=== PATIENT | male | born 1985 | race African-American/Black ===

== ENCOUNTER 2017-04-15 15:08 | Emergency (ER) | payer OTHER, BC ==
[~2017-04-15] VITALS: Ht 175.3 cm; Wt 129.3 kg
[2017-04-15 15:22] VITALS: BP 169/92
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
[2017-04-15] MEDS ORDERED: CYCL10TA2 PO (16:54)
[2017-04-15] MEDS ORDERED: NAPR500T8 PO (16:54)
== END 2017-04-15 16:59 | disposition home or self-care (01) ==
LOC: ER 15:08
DX: S13.4XXA Sprain of ligaments of cervical spine, initial encounter (principal); M54.5 Low back pain; I10 Essential (primary) hypertension; V49.49XA Driver injured in collision with other motor vehicles in traffic accident, initial encounter; Y93.89 Activity, other specified; Y99.8 Other external cause status; Y92.488 Other paved roadways as the place of occurrence of the external cause
CPT/HCPCS: 72100; 72125; 99284-25

== ENCOUNTER 2018-04-22 12:03 | Emergency (ER) | payer BC, OTHER ==
[2018-04-22 12:40] LABS: ADD MAN DIFF? NO
[2018-04-22 12:42] LABS: BASO % 1 % (0-3); EOS # 0.3 x10^3/uL (0.0-0.7); EOS % 5 % (0-3); HEMATOCRIT 42.7 % (39.0-53.0); HEMOGLOBIN 15.2 g/dL (13.0-17.5); LYMPH # 1.3 x10^3/uL (1.0-4.8); LYMPH % 28 % (24-48); MEAN CORPUSCULAR HEMOGLOBIN 32 pg (25-35); MEAN CORPUSCULAR HGB CONC 36 g/dL (31-37); MEAN CORPUSCULAR VOLUME 90 fL (79-100); MONO # 0.4 x10^3/uL (0.0-1.1); MONO % 8 % (0-9); NEUT # 2.8 x10^3uL (1.8-7.7); NEUT % 58 % (31-73); PLATELET COUNT 209 x10^3/uL (140-400); RED BLOOD COUNT 4.73 x10^6/uL (4.30-5.70); RED CELL DISTRIBUTION WIDTH 12.6 % (11.5-14.5); WHITE BLOOD COUNT 4.9 x10^3/uL (4.0-11.0)
[2018-04-22 12:54] LABS: ANION GAP 11 (6-14); BLOOD UREA NITROGEN 11 mg/dL (8-26); BUN/CREATININE RATIO 11 (6-20); CALCIUM 8.2 mg/dL (8.5-10.1); CARBON DIOXIDE 25 mmol/L (21-32); CHLORIDE 105 mmol/L (98-107); GFR 105.5; GLUCOSE 147 mg/dL (70-99); POTASSIUM 3.6 mmol/L (3.5-5.1); SODIUM 141 mmol/L (136-145)
[2018-04-22 12:58] LABS: TROPONINI 0.017 ng/mL (0.000-0.055)
[2018-04-22 13:00] LABS: ALBUMIN 3.5 g/dL (3.4-5.0); ALK PHOS 62 U/L (46-116); ALT (SGPT) 51 U/L (16-63); AST (SGOT) 23 U/L (15-37); TOTAL BILIRUBIN 0.3 mg/dL (0.2-1.0); TOTAL PROTEIN 7.1 g/dL (6.4-8.2)
[2018-04-22 13:04] LABS: BILIRUBIN,URINE NEGATIVE (NEG); CLARITY,URINE CLEAR; COLOR,URINE YELLOW; GLUCOSE,URINE NEGATIVE (NEG); NITRITE,URINE NEGATIVE (NEG); PH,URINE 5.5; PROTEIN,URINE NEGATIVE (NEG-TRACE); UROBILINOGEN,URINE 0.2 mg/dL (0.2 mg/dL)
[2018-04-22 13:12] LABS: BACTERIA,URINE 0 /HPF (0-FEW); RBC,URINE 0 /HPF (0-2); SQUAMOUS EPITHELIAL CELL,UR FEW /LPF
[2018-04-22 14:16] LABS: AMPHETAMINE/METHAMPHETAMINE NEG (NEG); BARBITURATES NEG (NEG); BENZODIAZEPINES NEG (NEG); CANNABINOIDS NEG (NEG); COCAINE NEG (NEG); ETHANOL, URINE NEG (NEG); METHADONE NEG (NEG); OPIATES NEG (NEG); PHENCYCLIDINE NEG (NEG)
[2018-04-22] MEDS: cloNIDine HCL 0.1 MG TABLET PO (14:25)
== END 2018-04-22 14:58 | disposition home or self-care (01) ==
LOC: ER 12:03
DX: I10 Essential (primary) hypertension (principal); F43.8 Other reactions to severe stress; R53.81 Other malaise; F17.200 Nicotine dependence, unspecified, uncomplicated; F10.10 Alcohol abuse, uncomplicated
CPT/HCPCS: 36415; 80053; 80307; 81001; 84484; 85025; 93005; 99285-25

== ENCOUNTER 2019-10-05 18:42 | Emergency (ER) | payer BC ==
[~2019-10-05] VITALS: Ht 172.7 cm; Wt 145.1 kg
[~2019-10-05 18:42] MED LIST: CYCL10TA2 PO; NAPR500T8 PO
[2019-10-05 18:45] VITALS: BP 149/84
[2019-10-05] MEDS ORDERED: DEXAMETHASONE 4 MG TABLET PO STA (19:25)
[2019-10-05] MEDS ORDERED: ONDA4TAB12 PO (19:35)
--- NOTE | 2019-10-05 19:35 | PHYS DOC ---
Past Medical History Past Medical History: Hypertension, Other Additional Past Medical Histor: obesity (TIFFANI LENZ APRN) Past Surgical History: No Surgical History (TIFFANI LENZ APRN) Alcohol Use: Heavy Drug Use: None (TIFFANI LENZ APRN) Attending Signature I have participated in the care of this patient and I have reviewed and agree with all pertinent clinical information above including history, exam, and recommendations. (HUGH IBANEZ MD) Adult General Chief Complaint Chief Complaint: COUGH HPI HPI Patient is a 34 year old male who presents with headache, loss of appetite, nausea, vomiting, sore throat, runny nose, cough that started yesterday. (TIFFANI LENZ APRN) Review of Systems Review of Systems Constitutional: Reports fever or chills and body aches. Eyes: Denies change in visual acuity, redness, or eye pain [] HENT: Reports nasal congestion, sore throat, and runny nose. Respiratory: Reports cough. Denies shortness of breath. Cardiovascular: No additional information not addressed in HPI [] GI: Reports nausea and vomiting. Denies abdominal pain, bloody stools or diarrhea [] : Denies dysuria or hematuria [] Musculoskeletal: Denies back pain or joint pain [] Integument: Denies rash or skin lesions [] Neurologic: Reports headache, denies focal weakness or sensory changes [] Endocrine: Denies polyuria or polydipsia [] Complete systems were reviewed and found to be within normal limits, except as documented in this note. (TIFFANI LENZ APRN) Current Medications Current Medications Current Medications Medications (Trade) Dose Ordered Sig/Shazia Start Time Stop Time Status Last Admin Dose Admin Dexamethasone (Decadron) 10 mg 1X STAT 10/05/19 19:25 10/05/19 19:32 DC 10/05/19 19:38 10 MG (HUGH IBANEZ MD) Allergies Allergies Allergies Coded Allergies Type Severity Reaction Last Updated Verified No Known Drug Allergies 04/15/17 No (HUGH IBANEZ MD) Physical Exam Physical Exam Constitutional: Well developed, well nourished, no acute distress, non-toxic appearance. [] HENT: Normocephalic, atraumatic, bilateral external ears normal, bilateral tympanic membranes are pearly lowe, oropharynx moist, no oral exudates, nose turbinates are inflamed. Eyes: PERRLA, EOMI, conjunctiva normal, no discharge. [] Neck: Normal range of motion, no tenderness, supple, no stridor. [] Cardiovascular:Heart rate regular rhythm, no murmur [] Lungs & Thorax: Bilateral breath sounds clear to auscultation [] Abdomen: Bowel sounds normal, soft, no tenderness, no masses, no pulsatile masses. [] Skin: Warm, dry, no erythema, no rash. [] Neurologic: Alert and oriented X 3, normal motor function, normal sensory function, no focal deficits noted. [] Psychologic: Affect normal, judgement normal, mood normal. [] (TIFFANI LENZ APRN) Current Patient Data Vital Signs Vital Signs Date Time Temp Pulse Resp B/P (MAP) Pulse Ox O2 Delivery O2 Flow Rate FiO2 10/05/19 18:45 102.1 113 12 149/84 (105) 97 Room Air 102.1 (HUGH IBANEZ MD) EKG EKG [] (TIFFANI LENZ APRN) Radiology/Procedures Radiology/Procedures [] (TIFFANI LENZ APRN) Course & Med Decision Making Course & Med Decision Making Pertinent Labs and Imaging studies reviewed. (See chart for details) The patient appears to have the Flu clinically. Discussed with patient the importance of drinking plenty of fluids. I also discussed the importance of re st. It was discussed with the patient that she is contagious and to stay away from others until it has been a week since the start of his symptoms. Discussed with the patient that she can take Zyrtec per label instructions for runny nose. Also discussed the proper control of fever by rotating Tylenol and Ibuprofen at home. Will give the patient Decadron in the ER for symptom control. Will also prescribe Zofran for nausea. (TIFFANI LENZ APRN) Dragon Disclaimer Dragon Disclaimer This electronic medical record was generated, in whole or in part, using a voice recognition dictation system. (TIFFANI LENZ APRN) Departure Departure Impression: Primary Impression: Viral syndrome Disposition: 01 HOME, SELF-CARE Condition: STABLE Referrals: DIANNE SOLER MD (PCP) Patient Instructions: Influenza A (H1N1) Additional Instructions: Thank you for visiting [facility]. We appreciate you trusting us with your care. If any additional problems come up don't hesitate to return to visit us. Please follow up with your primary care provider so they can plan additional care if needed and know about the problem that you had. If symptoms worsen come back to the Emergency Department. Any concerning symptoms that start such as chest pain, shortness of air, weakness or numbness on one side of the body, running high fevers or any other concerning symptoms return to the ER. Please fill your medications at any pharmacy and follow the prescription instructions. Please drink plenty of fluids. If unable to keep fluids down please return to ER. Please get Tylenol and Ibuprofen over the counter. Give each medication every 6 hours as directed by the medication labels. In order to utilize the peak of the medications stagger the medications to where the child is getting one of the medications every 3 hours. For example if you give Ibuprofen at 3 PM, you then give Tylenol at 6 PM and Ibuprofen again at 9 PM, and then Tylenol at midnight. Please get Zyrtec over the counter and take per label instructions for runny nose. Scripts Ondansetron (ONDANSETRON ODT) 4 Mg Tab.rapdis 1 TAB PO PRN Q6-8HRS PRN for NAUSEA, #16 TAB Prov: TIFFANI LENZ APRN 10/05/19 TIFFANI LENZ APRN Oct 05, 2019 19:35 HUGH IBANEZ MD Oct 07, 2019 02:49
== END 2019-10-05 19:39 | disposition home or self-care (01) ==
LOC: ER 18:42
DX: B34.9 Viral infection, unspecified (principal); R09.89 Other specified symptoms and signs involving the circulatory and respiratory systems; R05 Cough; R11.2 Nausea with vomiting, unspecified; J02.9 Acute pharyngitis, unspecified; I10 Essential (primary) hypertension; F10.10 Alcohol abuse, uncomplicated
CPT/HCPCS: 99283; J8540

== ENCOUNTER → 2021-10-06 | Emergency (ER) | payer BC ==
[~2021-10-06] MED LIST changes: +CYCL10TA19 PO; -CYCL10TA2 PO; +ONDA4TAB12 PO
== END | disposition left against medical advice (07) ==
LOC: ER 12:20
DX: Z48.01 Encounter for change or removal of surgical wound dressing (principal); Z53.21 Procedure and treatment not carried out due to patient leaving prior to being seen by health care provider